=== PATIENT | male | born 2000 | race Caucasian/White ===

== ENCOUNTER 2020-08-22 01:54 | Inpatient (IN) | payer OTHER ==
[~2020-08-22] VITALS: Ht 180.3 cm; Wt 82.4 kg
[2020-08-22] MEDS ORDERED: fentaNYL PF VIAL 100 MCG/2 ML VIAL ONE (02:10)
[2020-08-22] MEDS ORDERED: fentaNYL PF VIAL 100 MCG/2 ML VIAL IVP ONE ×2 (02:15→05:00)
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
[2020-08-22 02:29] LABS: BASO % 0 % (0-3); EOS % 0 % (0-3); HEMATOCRIT 41.2 % (39.0-53.0); HEMOGLOBIN 14.7 g/dL (13.0-17.5); LYMPH # 1.2 x10^3/uL (1.0-4.8); LYMPH % 10 % (24-48); MEAN CORPUSCULAR HEMOGLOBIN 32 pg (25-35); MEAN CORPUSCULAR HGB CONC 36 g/dL (31-37); MEAN CORPUSCULAR VOLUME 89 fL (79-100); MONO # 0.8 x10^3/uL (0.0-1.1); MONO % 6 % (0-9); NEUT # 10.5 x10^3/uL (1.8-7.7); NEUT % 83 % (31-73); PLATELET COUNT 304 x10^3/uL (140-400); RED BLOOD COUNT 4.63 x10^6/uL (4.30-5.70); RED CELL DISTRIBUTION WIDTH 13.1 % (11.5-14.5); WHITE BLOOD COUNT 12.6 x10^3/uL (4.0-11.0)
[2020-08-22 02:38] LABS: CALCIUM 9.2 mg/dL (8.5-10.1); CREATININE 0.9 mg/dL (0.7-1.3); GFR 107.6; POTASSIUM 3.6 mmol/L (3.5-5.1)
[2020-08-22] MEDS ORDERED: CONTRAST GIVEN. MC PRN (02:45)
[2020-08-22 02:46] LABS: ALBUMIN 4.6 g/dL (3.4-5.0); ALBUMIN/GLOBULIN RATIO 1.6 (1.0-1.7); TOTAL BILIRUBIN 1.6 mg/dL (0.2-1.0); TOTAL PROTEIN 7.5 g/dL (6.4-8.2)
[2020-08-22] MEDS ORDERED: IOHEXOL 300 MG/ML 100ML VIAL. IV ONE (03:00)
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
[2020-08-22 04:21] LABS: BARBITURATES NEG (NEG); BENZODIAZEPINES NEG (NEG); CANNABINOIDS POS (NEG); COCAINE NEG (NEG); METHADONE NEG (NEG); OPIATES NEG (NEG); PHENCYCLIDINE NEG (NEG)
[2020-08-22 04:22] LABS: AMPHETAMINE/METHAMPHETAMINE NEG (NEG)
[2020-08-22] MEDS ORDERED: ONDANSETRON PF 4 MG/2 ML VIAL. IV PRN (04:30)
[2020-08-22 06:05] VITALS: BP 153/72
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
[2020-08-22] MEDS ORDERED: HYDR-2761 PO (11:16)
[2020-08-22] MEDS: MORPHINE SULFATE 4 MG/ML VIAL. IV PRN ×3 (13:02→23:10)
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
[2020-08-22 14:42] VITALS: BP 139/78
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
--- NOTE | 2020-08-22 18:15 | NUR ---
The patient, NIDIA WU, 19 y/o, M admitted by NIMA COLEMAN MD, was given written information regarding hospital policies, unit procedures and contact persons. Valuables were checked and see database for admission requirements and assessments.
[2020-08-22 19:00] VITALS: BP 152/74
[2020-08-22 21:32] VITALS: BP 133/77
--- NOTE | 2020-08-22 21:35 | NUR ---
Transferred to 422 from ER hold.
[2020-08-22 23:00] VITALS: BP 134/61
[2020-08-22] MEDS ORDERED: IV NORMAL SALINE 1000ML BAG 1,000 ML IV ONE (23:45)
[2020-08-23 03:00] VITALS: BP 120/60
--- NOTE | 2020-08-23 06:41 | NUR ---
Slept well, Morphine given x1. NS running 125cc/hr per existing saline lock from ED.
[2020-08-23 07:00] VITALS: BP 131/70
[2020-08-23] MEDS: HYDROcodone/APAP 5/325MG 1 TAB TABLET PO PRN ×2 (08:22→14:25)
[2020-08-23] MEDS ORDERED: IV NORMAL SALINE 1000ML BAG 1,000 ML IV ONE (08:30)
--- NOTE | 2020-08-23 09:47 | NUR ---
SW following. Discussed with RN, pt from home, room air, regular diet. Okay to discharge per surgery. RN and Dr. Valdez anticipate discharge home today with self care. RN advised no SW needs. SW will continue to follow, should any needs arise.
[2020-08-23 10:30] LABS: ALBUMIN 3.6 g/dL (3.4-5.0); ALBUMIN/GLOBULIN RATIO 1.2 (1.0-1.7); CALCIUM 9.1 mg/dL (8.5-10.1); CREATININE 0.7 mg/dL (0.7-1.3); GFR 143.8; POTASSIUM 4.1 mmol/L (3.5-5.1); TOTAL BILIRUBIN 3.3 mg/dL (0.2-1.0); TOTAL PROTEIN 6.5 g/dL (6.4-8.2)
[2020-08-23 11:00] VITALS: BP 128/68
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
[2020-08-23 15:00] VITALS: BP 129/66
== END 2020-08-23 17:20 | disposition home or self-care (01) | DRG 563 ==
LOC: ER 01:54 → ED HOLD 05:35 → 4 NORTH 21:30
PROVIDERS: ADMIT Internal Medicine; ATTEND Internal Medicine
DX: S42.101A Fracture of unspecified part of scapula, right shoulder, initial encounter for closed fracture (principal); T79.A0XA Compartment syndrome, unspecified, initial encounter; Q79.60 Ehlers-Danlos syndrome, unspecified; S80.01XA Contusion of right knee, initial encounter; S80.11XA Contusion of right lower leg, initial encounter; V28.4XXA Motorcycle driver injured in noncollision transport accident in traffic accident, initial encounter; Y93.55 Activity, bike riding; Y92.488 Other paved roadways as the place of occurrence of the external cause; Y99.8 Other external cause status
CPT/HCPCS: 36415; 70450; 71260; 72125; 73030; 73552; 74177; 80053; 80307; 82550; 85025; 99406; G0480; J2270; J2405; J3010; J7030; Q9967; G0378